=== PATIENT | female | born 1990 | race African-American/Black ===

== ENCOUNTER 2021-04-23 20:43 | Emergency (ER) | payer MEDICAID ==
[~2021-04-23] VITALS: Ht 172.7 cm; Wt 59.0 kg
[2021-04-23 20:46] VITALS: BP 137/51
[2021-04-23 21:52] LABS: CLARITY URINE CLOUDY (CLEAR); COLOR URINE YELLOW (YELLOW); KETONES URINE 1+ (NEGATIVE); LEUKOCYTE ESTERASE URINE TRACE (NEGATIVE); NITRITE URINE NEGATIVE (NEGATIVE); OCCULT BLOOD URINE NEGATIVE (NEGATIVE); PROTEIN URINE TRACE (NEGATIVE); SPECIFIC GRAVITY URINE 1.028 (1.005-1.030)
[2021-04-24] MEDS ORDERED: TOPUD PO (06:55)
== END 2021-04-23 22:55 | disposition home or self-care (01) ==
LOC: ER 20:43
DX: T40.711A Poisoning by cannabis, accidental (unintentional), initial encounter (principal); R07.89 Other chest pain; F12.980 Cannabis use, unspecified with anxiety disorder; M54.9 Dorsalgia, unspecified; R00.0 Tachycardia, unspecified; R20.2 Paresthesia of skin; R06.00 Dyspnea, unspecified; M79.18 Myalgia, other site; G40.909 Epilepsy, unspecified, not intractable, without status epilepticus; Y92.89 Other specified places as the place of occurrence of the external cause
CPT/HCPCS: 71046; 81003; 81025; 93005; 99285

== ENCOUNTER 2021-04-24 03:40 | Emergency (ER) | payer MEDICAID ==
[~2021-04-24] VITALS: Ht 172.7 cm; Wt 48.0 kg
[2021-04-24 03:42] VITALS: BP 103/64
[2021-04-24] MEDS ORDERED: TOPUD PO (06:55)
== END 2021-04-24 07:13 | disposition home or self-care (01) ==
LOC: ER 03:40
DX: R06.02 Shortness of breath (principal); F12.10 Cannabis abuse, uncomplicated; Z86.59 Personal history of other mental and behavioral disorders
CPT/HCPCS: 71045; 99283

== ENCOUNTER 2021-04-24 17:31 | Emergency (ER) | payer MEDICAID ==
[~2021-04-24] VITALS: Ht 172.7 cm; Wt 62.0 kg
[~2021-04-24 17:31] MED LIST: TOPUD PO
[2021-04-24 17:33] VITALS: BP 127/61
== END 2021-04-24 18:50 | disposition left against medical advice (07) ==
LOC: ER 17:31
DX: Z53.21 Procedure and treatment not carried out due to patient leaving prior to being seen by health care provider (principal)